=== PATIENT | female | born 1955 | race African-American/Black ===

== ENCOUNTER → 2021-03-20 | Outpatient (CLI) | payer OTHER ==
[2014-09-04 14:00] VITALS: BP 157/78
[~2021-03-20] MED LIST: ALBU1.25 NEB; ALBU2.5V8 IH; AZIT250T6 PO; PRED50TA PO
--- NOTE | 2021-03-20 12:18 | RAD ---
XR CHEST 2V History: Reason: hemoptysis, smoker / Spl. Instructions: / History: Comparison: Two-view chest, September 04, 2014. Findings: The cardiomediastinal silhouette is normal. Pulmonary vasculature is normal. Small nodule in the righ t lung base is likely calcified and likely a calcified granuloma. The lungs are otherwise clear. No p leural effusion or pneumothorax is seen. There is no acute bone abnormality. There is degenerative en dplate spurring of the thoracic spine. IMPRESSION: No acute cardiopulmonary process. Electronically signed by: Kevin Sandoval MD (03/20/2021 12:16 PM) [facility]NANDO
== END ==
LOC: RAD 09:55
PROVIDERS: ATTEND Internal Medicine Gastroenterology
DX: R04.2 Hemoptysis (principal); F17.200 Nicotine dependence, unspecified, uncomplicated
CPT/HCPCS: 71046

== ENCOUNTER → 2021-03-22 | Outpatient (CLI) | payer OTHER ==
[2014-09-04 14:00] VITALS: BP 157/78
--- NOTE | 2021-03-24 14:07 | RAD ---
DATE: 03/24/2021 EXAM: MG 2D BILAT SCREENING HISTORY: Screening COMPARISON: 10/29/2014 This study was interpreted with the benefit of Computerized Aided Detection (CAD). FINDINGS: The breast parenchyma is heterogeneously dense, which could reduce sensitivity of mammography. Globa l asymmetry in the outer right breast is unchanged. Multiple bilateral circumscribed benign-appearing masses are unchanged. There are benign calcifications bilaterally. Small bilateral axillary lymph no víctor are unchanged. No suspicious mass, suspicious calcifications, or architectural distortion. IMPRESSION: No evidence of malignancy. BI-RADS CATEGORY: 2 BENIGN FINDING RECOMMENDED FOLLOW-UP: 12M 12 MONTH FOLLOW-UP PQRS compliance statement: Patient information was entered into a reminder system with a target due d ate for the next mammogram. Mammography is a sensitive method for finding small breast cancers, but it does not detect them all a nd is not a substitute for careful clinical examination. A negative mammogram does not negate a clin ically suspicious finding and should not result in delay in biopsying a clinically suspicious abnorma lity. "Our facility is accredited by the [employer] Mammography Program." Electronically signed by: Amber Vásquez MD (03/24/2021 2:05 PM) [id number]
== END ==
LOC: MAMMO 11:01
PROVIDERS: ATTEND Family Medicine
DX: Z12.31 Encounter for screening mammogram for malignant neoplasm of breast (principal)
CPT/HCPCS: 77067

== ENCOUNTER 2021-05-11 09:36 | Emergency (ER) | payer OTHER ==
[~2021-05-11] VITALS: Ht 165.1 cm; Wt 116.8 kg
[2021-05-11] MEDS ORDERED: ONDANSETRON PF 4 MG/2 ML VIAL. IVP ONE (09:45)
[2021-05-11] MEDS ORDERED: CONTRAST GIVEN. MC PRN (10:00)
[2021-05-11] MEDS ORDERED: IOHEXOL 300 MG/ML 75 ML VIAL. IV ONE (10:00)
--- NOTE | 2021-05-11 10:16 | PHYS DOC ---
Past History Past Medical History: COPD Past Surgical History: No Surgical History, Hysterectomy, Other Additional Past Surgical Histo: BACK SURGERY Alcohol Use: None Drug Use: None General Adult EDM: Chief Complaint: ABDOMINAL PAIN HPI: HPI: Patient is a 65-year-old female coming in via EMS for low abdominal pain for the past 2 days. Patient states that she was diagnosed with diverticulitis and has been on antibiotics for the past couple weeks. Had a colonoscopy and EGD 1 month ago. Patient states she had some nausea no vomiting. Is taking a stool softener and had a soft bowel movement this morning. Denies any vaginal bleeding, pain, dysuria, or hematuria. Patient states that the endoscopy was because she was "coughing up blood". Patient denies any fevers. States the pain is worse with any movement. Review of Systems: Review of Systems: All other systems within normal limits except for as noted in the HPI Current Medications: Current Meds: Current Medications Medications (Trade) Dose Ordered Sig/Kristie Start Time Stop Time Status Last Admin Dose Admin Fentanyl Citrate (Fentanyl 2ml Vial) 75 mcg 1X ONCE 05/11/21 09:45 05/11/21 09:52 DC 05/11/21 10:04 75 MCG Info (Do NOT chart on this entry -- for MONITORING) 1 each PRN DAILY PRN 05/11/21 10:00 05/13/21 09:59 Iohexol (Omnipaque 300 Mg/ml) 75 ml 1X ONCE 05/11/21 10:00 05/11/21 10:01 DC Ondansetron HCl (Zofran) 4 mg 1X ONCE 05/11/21 09:45 05/11/21 09:52 DC 05/11/21 10:03 4 MG Allergies: Allergies: Allergies Coded Allergies Type Severity Reaction Last Updated Verified No Known Drug Allergies 05/11/21 No Physical Exam: PE: Constitutional: Well developed, well nourished, no acute distress, non-toxic appearance. [] HENT: Normocephalic, atraumatic, bilateral external ears normal, nose normal. [] Eyes: PERRLA, conjunctiva normal, no discharge. [] Neck: No rigidity, supple, no stridor. [] Cardiovascular: Regular rate and rhythm, brisk cap refill [] Lungs & Thorax: Non labored symmetric respirations, no tachypnea or respiratory distress [] Abdomen: Soft, nondistended generalized abdominal tenderness. : Normal external genitalia, no erythema or rashes, patient would not tolerate speculum exam, digital exam shows bulging of the anterior vagina Skin: Warm, dry, no erythema, no rash. [] Back: Unremarkable Extremities: No deformities, range of motion grossly intact, no lower extremity edema [] Neurologic: Alert and oriented X 3, no focal deficits noted. [] Psychologic: Affect normal, judgement normal, mood normal. [] Current Patient Data: Vital Signs: Vital Signs Date Time Temp Pulse Resp B/P (MAP) Pulse Ox O2 Delivery O2 Flow Rate FiO2 05/11/21 10:09 87 18 128/76 (93) 98 Room Air 05/11/21 09:41 98.6 EKG: EKG: [] Radiology/Procedures: Radiology/Procedures: [address] [address] IMAGING REPORT Signed PATIENT: AUGIE PEREZ ACCOUNT: [id number] : 1955 LOCATION: ER AGE: 65 SEX: F EXAM STATUS: REG ER ORD. PHYSICIAN: DEVON WOMACK MD REASON: low abd pain - CONTRAST ORDERED PROCEDURE: CT ABD PELV W/ IV CONTRST ONLY Exam Date: 05/11/2021 10:[address] ABDOMEN+PELVIS W Indication: Reason: low abd pain - CONTRAST ORDERED / Spl. Instructions: / History: . TECHNIQUE: CT examination of the abdomen and pelvis was performed following the administration of nonionic intravenous contrast. One or more of the following dose reduction techniques were utilized: *Automated exposure control (AEC) *Adjustment of mA and/or kV according to patient size *Use of iterative reconstruction technique *CT scan done according to ALARA, or ALARA/IMAGE GENTLY FINDINGS: The visualized lung bases are clear. The liver, gallbladder, spleen, pancreas, adrenal glands and kidneys are normal. Urinary bladder is normal in appearance. Diverticulosis coli is seen without bowel obstruction or inflammation. The appendix is normal. No significant atherosclerotic calcifications are seen. No lymphadenopathy or ascites is seen. Degenerative changes are seen in the spine. There is a 7.7 x 4.4 cm fatty lesion in the right gluteus demar muscle consistent with an intramuscular hematoma. IMPRESSION: No evidence of acute intra-abdominal pathology. Electronically signed by: Steven Beckett MD (05/11/2021 10:43 AM) [id number] DICTATED AND SIGNED BY: STEVEN BECKETT MD DATE: 05/11/21 1037 CC: DEVON WOMACK MD; PHUONG GUTIERREZ MD ~MTH0 0 [] Heart Score: C/O Chest Pain: No Risk Factors: Risk Factors: DM, Current or recent (<one month) smoker, HTN, HLP, family history of CAD, obesity. Risk Scores: Score 0 - 3: 2.5% MACE over next 6 weeks - Discharge Home Score 4 - 6: 20.3% MACE over next 6 weeks - Admit for Clinical Observation Score 7 - 10: 72.7% MACE over next 6 weeks - Early Invasive Strategies Course & Med Decision Making: Course & Med Decision Making General exam consistent with cystocele, and patient's symptoms are relieved by laying flat Discussed case with Dr. Joyner regarding your tablet repair and was given several suggestions Brian Disclaimer: Brian Disclaimer: This electronic medical record was generated, in whole or in part, using a voice recognition dictation system. Departure Departure: Impression: Primary Impression: Cystocele Disposition: LEFT AWOL/ELOPED Condition: STABLE Referrals: PHUONG GUTIERREZ MD (PCP) Patient Instructions: Pelvic Pain, Female Additional Instructions: Check with your insurance company her primary care provider if you need a referral for a urogynecologist. [facility] also has your tablet repair available. [facility] [place] group: [phone] [facility] [employer], [address] [address] DEVON WOMACK MD May 11, 2021 10:16
[2021-05-11] MEDS ORDERED: MORPHINE SULFATE 4 MG/ML DISP.SYRIN. ONE (10:35)
[2021-05-11] MEDS ORDERED: OLANZapine 2.5 MG TABLET PO ONE (10:45)
[2021-05-11] MEDS ORDERED: MORPHINE SULFATE 4 MG/ML DISP.SYRIN. IV ONE (10:45)
[2021-05-11] MEDS ORDERED: LORazepam 1 MG TABLET PO ONE (10:45)
--- NOTE | 2021-05-11 10:45 | RAD ---
Exam Date: 05/11/2021 10:[address] ABDOMEN+PELVIS W Indication: Reason: low abd pain - CONTRAST ORDERED / Spl. Instructions: / History: . TECHNIQUE: CT examination of the abdomen and pelvis was performed following the administration of no nionic intravenous contrast. One or more of the following dose reduction techniques were utilized: *Automated exposure control (AEC) *Adjustment of mA and/or kV according to patient size *Use of iterative reconstruction technique *CT scan done according to ALARA, or ALARA/IMAGE GENTLY FINDINGS: The visualized lung bases are clear. The liver, gallbladder, spleen, pancreas, adrenal glands and kidneys are normal. Urinary bladder is normal in appearance. Diverticulosis coli is seen without bowel obstruction or inflammation. The appendix is normal. No significant atherosclerotic calcifications are seen. No lymphadenopathy or ascites is seen. Degenerative changes are seen in the spine. There is a 7.7 x 4.4 cm fatty lesion in the right gluteu s demar muscle consistent with an intramuscular hematoma. IMPRESSION: No evidence of acute intra-abdominal pathology. Electronically signed by: Job Beckett MD (05/11/2021 10:43 AM) [id number]
[2021-05-11 10:49] LABS: BASO # 0.1 x10^3/uL (0.0-0.2); BASO % 1 % (0-3); EOS % 0 % (0-3); HEMATOCRIT 32.8 % (36.0-47.0); HEMOGLOBIN 10.4 g/dL (12.0-15.5); LYMPH # 1.4 x10^3/uL (1.0-4.8); LYMPH % 19 % (24-48); MEAN CORPUSCULAR HEMOGLOBIN 22 pg (25-35); MEAN CORPUSCULAR HGB CONC 32 g/dL (31-37); MEAN CORPUSCULAR VOLUME 69 fL (79-100); MONO % 14 % (0-9); NEUT % 66 % (31-73); PLATELET COUNT 285 x10^3/uL (140-400); RED BLOOD COUNT 4.77 x10^6/uL (3.50-5.40); RED CELL DISTRIBUTION WIDTH 15.8 % (11.5-14.5); WHITE BLOOD COUNT 7.6 x10^3/uL (4.0-11.0)
[2021-05-11 10:57] LABS: CALCIUM 8.2 mg/dL (8.5-10.1); CREATININE 0.9 mg/dL (0.6-1.0); GFR 76.5; POTASSIUM 3.3 mmol/L (3.5-5.1)
[2021-05-11 11:04] LABS: ALBUMIN 3.4 g/dL (3.4-5.0); ALBUMIN/GLOBULIN RATIO 0.9 (1.0-1.7); TOTAL BILIRUBIN 1.4 mg/dL (0.2-1.0)
[2021-05-11 11:28] LABS: BILIRUBIN,URINE NEG (NEG); CLARITY,URINE CLEAR; COLOR,URINE YELLOW; GLUCOSE,URINE NEG (NEG); NITRITE,URINE NEG (NEG); UROBILINOGEN,URINE 0.2 mg/dL (0.2 mg/dL)
[2021-05-11 11:33] LABS: BACTERIA,URINE 0 /HPF (0-FEW); SQUAMOUS EPITHELIAL CELL,UR MOD /LPF; WBC,URINE 0 /HPF (0-4)
[2021-05-11] MEDS ORDERED: KETOROLAC 30 MG/ML VIAL. ONE (12:14)
[2021-05-11] MEDS ORDERED: KETOROLAC 30 MG/ML VIAL. IVP ONE (12:15)
[2021-05-11 12:17] LABS: HYPOCHROMIA PRESENT
[2021-05-11 12:18] LABS: TARGET CELLS PRESENT
[2021-05-11 12:19] LABS: PLT ESTIMATE ADEQUATE (ADEQUATE)
[2021-05-11 13:58] VITALS: BP 122/64
== END 2021-05-11 13:58 | disposition left against medical advice (07) ==
LOC: ER 09:36
DX: N81.10 Cystocele, unspecified (principal); J44.9 Chronic obstructive pulmonary disease, unspecified
CPT/HCPCS: 36415; 74177; 80053; 81001; 83605; 83690; 85025; 96374; 96375; 99285; J1885; J2270; J2405; J3010; Q9967

== ENCOUNTER 2021-05-19 12:32 | Emergency (ER) | payer OTHER ==
[~2021-05-19] VITALS: Ht 165.1 cm; Wt 116.8 kg
[2021-05-19 12:39] VITALS: BP 147/92
[2021-05-19] MEDS ORDERED: oxyCODONE/APAP 7.5/325 1 TAB TABLET PO ONE (13:30)
[2021-05-19] MEDS ORDERED: OXYC1TAB22 PO (14:13)
--- NOTE | 2021-05-19 14:16 | PHYS DOC ---
Past History Past Medical History: COPD (GAGE HERNANDEZ APRN) Past Surgical History: Hysterectomy, Other Additional Past Surgical Histo: BACK SURGERY (GAGE HERNANDEZ APRN) Alcohol Use: None Drug Use: None (GAGE HERNANDEZ APRN) General Adult EDM: Chief Complaint: BACK PAIN - NO INJURY HPI: HPI: Patient is a 65-year-old female presents with lower abdominal pain that radiates into her lower back. Patient has been seen once at [facility] and also admitted to [facility] for intractable abdominal pain. Patient was unsure of what CT scan results showed. Patient states she was told to follow-up with uro-/CNA PER DIEM. Patient has not called to make an appointment. Patient states that pain is better than it was but she is out of pain medication and is concerned pain will increase. Patient is also reporting issues with urinating. Patient was placed on oxybutynin a few days ago when she was discharged from [facility]. Patient symptoms are unchanged from 2 previous visits in the last week. Patient has history of COPD, hypertension. Patient is afebrile. (GAGE HERNANDEZ APRN) Review of Systems: Review of Systems: Constitutional: Denies fever or chills Eyes: Denies change in visual acuity HENT: Denies nasal congestion or sore throat Respiratory: Denies cough or shortness of breath Cardiovascular: Denies chest pain or edema GI: Reports lower abdominal pain, denies nausea, vomiting, bloody stools or diarrhea : Denies dysuria. Reports trouble with urinating Musculoskeletal: Reports left-sided back pain, denies joint pain Integument: Denies rash Neurologic: Denies headache, focal weakness or sensory changes Endocrine: Denies polyuria or polydipsia Lymphatic: Denies swollen glands Psychiatric: Denies depression or anxiety (GAGE HERNANDEZ APRN) Current Medications: Current Meds: Current Medications Medications (Trade) Dose Ordered Sig/Kristie Start Time Stop Time Status Last Admin Dose Admin Oxycodone/ Acetaminophen (Percocet 7.5/ 325) 1 tab 1X ONCE 05/19/21 13:30 05/19/21 13:42 DC 05/19/21 13:39 1 TAB (GAGE HERNANDEZ APRN) Allergies: Allergies: Allergies Coded Allergies Type Severity Reaction Last Updated Verified No Known Drug Allergies 05/11/21 No (GAGE HERNANDEZ APRN) Physical Exam: PE: Constitutional: Well developed, well nourished, no acute distress, non-toxic appearance. [] HENT: Normocephalic, atraumatic, bilateral external ears normal, oropharynx moist, no oral exudates, nose normal. [] Eyes: PERRLA, EOMI, conjunctiva normal, no discharge. [] Neck: Normal range of motion, no tenderness, supple, no stridor. [] Cardiovascular:Heart rate regular rhythm, no murmur [] Lungs & Thorax: Bilateral breath sounds clear to auscultation [] Abdomen: Bowel sounds normal, soft, no tenderness, no masses, no pulsatile masses. [] Skin: Warm, dry, no erythema, no rash. [] Back: No tenderness, no CVA tenderness. [] Extremities: No tenderness, no cyanosis, no clubbing, ROM intact, no edema. [] Neurologic: Alert and oriented X 3, normal motor function, normal sensory function, no focal deficits noted. [] Psychologic: Affect normal, judgement normal, mood normal. [] (GAGE HERNANDEZ APRN) Current Patient Data: Vital Signs: Vital Signs Date Time Temp Pulse Resp B/P (MAP) Pulse Ox O2 Delivery O2 Flow Rate FiO2 05/19/21 13:39 18 05/19/21 12:39 97.9 67 147/92 96 Room Air (GAGE HERNANDEZ APRN) EKG: EKG: [] (GAGE HERNANDEZ APRN) Radiology/Procedures: Radiology/Procedures: [] (GAGE HERNANDEZ APRN) Heart Score: C/O Chest Pain: No Risk Factors: Risk Factors: DM, Current or recent (<one month) smoker, HTN, HLP, family history of CAD, obesity. Risk Scores: Score 0 - 3: 2.5% MACE over next 6 weeks - Discharge Home Score 4 - 6: 20.3% MACE over next 6 weeks - Admit for Clinical Observation Score 7 - 10: 72.7% MACE over next 6 weeks - Early Invasive Strategies (GAGE HERNANDEZ APRN) Course & Med Decision Making: Course & Med Decision Making Pertinent Labs and Imaging studies reviewed. (See chart for details) [] 65-year-old female who presents with lower abdominal pain that radiates into her left side of her lower back. Patient has been seen twice in the last week for same symptoms. Patient denies an increase in pain or new complaints. Patient states that she was prescribed Percocet but is now out of her medications at home. Patient states that she has been taking a pill every 3 hours instead of every 6. Patient is afebrile. Denies nausea/vomiting/diarrhea. Patient was seen by Dr. Joyner at [facility] which referred her to uro-/CNA PER DIEM. Patient has not contacted their office for follow-up. Patient states that she was confused on who she was supposed to call and make a follow-up appointment with. Patient's last CT scan of abdomen pelvis was negative for any acute abnormalities. Scan did show a lipoma in her gluteus demar. Discussed results with patient. Patient given a Percocet for pain while in the emergency room. Patient was sent home with a few Percocet until she is able to follow-up with her primary care physician. Discussed with patient that she needs to make her follow-up appointment to have further evaluation done by uro-/CNA PER DIEM. (GAGE HERNANDEZ APRN) Brian Disclaimer: Brian Disclaimer: This electronic medical record was generated, in whole or in part, using a voice recognition dictation system. (GAGE HERNANDEZ APRN) Attending Co-Sign The patient was seen and interviewed as well as examined at the bedside. The chart was reviewed. The case was discussed. Agree with the plan of care. (ALONZO SHANKS DO) Departure Departure: Impression: Primary Impression: Intractable abdominal pain Additional Impression: Lower back pain Qualified Codes: M54.5 - Low back pain Disposition: HOME / SELF CARE / HOMELESS Condition: STABLE Referrals: PHUONG GUTIERREZ MD (PCP) Patient Instructions: Abdominal Pain Additional Instructions: You were seen in the emergency room for abdominal pain. You were given Percocet to treat your pain. I am sending you home with a few Percocet until you can follow-up with your PCP. Your PCP will need to prescribe you pain medication since he will be the one managing your care. After reading the reports from your previous visit, it was suggested that you follow-up with your/CNA PER DIEM. I am attaching a phone number also for [facility] so that you have follow-up contact information. Make sure that you call today and make a follow-up appointment please. Return to the emergency room if you have worsening symptoms or concerns, otherwise follow-up with your PCP and [facility]. UROGYNECOLOGY [phone] EMERGENCY DEPARTMENT GENERAL DISCHARGE INSTRUCTIONS Thank you for coming to [facility] (ED) today and trusting us with you care. We trust that you had a positivie experience in our Emergency Department. If you wish to speak to the department management, you may call the director at [phone]. YOUR FOLLOW UP INSTRUCTIONS ARE FOLLOWS: 1. Do you have a private Doctor? If you do not have a private doctor, please ask for a resource list of physicians or clinics that may be able to assist you with follow up care. 2. The Emergency Physician has interpreted your x-rays. The X-Ray specialist will also review them. If there is a change in the findings, you will be notified in 48 hours when at all possible. 3. A lab test or culture has been done, your results will be reviewed and you will be notified if you need a change in treatment. ADDITIONAL INSTRUCTIONS AND INFORMATION: 1. Your care today has been supervised by a physician who is specially trained in emergency care. Many problems require more than one evaluation for a complete diagnosis and treatment. We recommend that you schedule your follow up appointment as recommended to ensure complete treatment of you illness or injury. If you are unable to obtain follow up care and continue to have a problem, or if your condition worsens, we recommend that you return to the ED. 2. We are not able to safely determine your condition over the phone nor are we able to give sound medical advice over the phone. For these safety reasons, if you call for medical advice we will ask you to come to the ED for further evaluation. 3. If you have any questions regarding these discharge instructions please call the ED at [phone]. SAFETY INFORMATION: In the interest of safety, wellness, and injury prevention; we encourage you to wear your sealbelt, if you smoke; quite smoking, and we encourage family to use a protective helmet for bicycling and other sporting events that present an increased risk for head injury. IF YOUR SYMPTOMS WORSEN OR NEW SYMPTOMS DEVELOP, OR YOU HAVE CONCERNS ABOUT YOUR CONDITION; OR IF YOUR CONDITION WORSENS WHILE YOU ARE WAITING FOR YOUR FOLLOW UP APPOINTMENT; EITHER CONTACT YOUR PRIMARY CARE DOCTOR, THE PHYSICIAN WHOSE NAME AND NUMBER YOU WERE GIVEN, OR RETURN TO THE ED IMMEDIATELY. Scripts Oxycodone Hcl/Acetaminophen (PERCOCET 10-325 MG TABLET ) 1 Each Tablet 1 TAB PO PRN Q6HRS PRN for PAIN MDD 4 Tablet(s) for 3 Days, #12 TAB 0 Refills Prov: GAGE HERNANDEZ APRN 05/19/21 GAGE HERNANDEZ APRN May 19, 2021 14:16 ALONZO SHANKS DO May 22, 2021 10:14
== END 2021-05-19 14:26 | disposition home or self-care (01) ==
LOC: ER 12:32
DX: R10.30 Lower abdominal pain, unspecified (principal); M54.5 Low back pain; R39.198 Other difficulties with micturition; J44.9 Chronic obstructive pulmonary disease, unspecified
CPT/HCPCS: 99283

== ENCOUNTER → 2021-06-01 | Outpatient (CLI) | payer OTHER ==
[2021-05-19 12:39] VITALS: BP 147/92
[~2021-06-01] MED LIST changes: +IOHEXOL 300 MG/ML 75 ML VIAL. IV ONE; +OXYC1TAB22 PO
--- NOTE | 2021-06-01 11:21 | RAD ---
CT of the chest with contrast 06/01/2021 INDICATION: Hemoptysis. Nicotine dependence. COMPARISON STUDY: Chest radiograph March 20, 2021. TECHNIQUE: Multidetector CT imaging of the chest was performed both before and after the administrati on of contrast. FINDINGS: Heterogenous appearance of the bilateral thyroid noted, with hypodense nodular foci noted. Thyroid ultrasound recommended. Heart size is normal. No pericardial effusion is identified. Scattere d small mediastinal lymph nodes noted without evidence of pathologically enlarged mediastinal adenopa thy. Visualized central airways are grossly patent. Thorax, pleural effusion, or acute appearing infi ltrate identified. There is a 4 mm noncalcified nodule in the left upper lobe (axial image 34). Mild apical predominant emphysematous changes are noted. Visualization of the upper abdomen is unremarkabl e. No acute osseous changes are seen. IMPRESSION: 1. 4 mm noncalcified nodule, left upper lobe. Follow-up CT chest recommended in one year. 2. Heterogenous appearance of the thyroid gland with nodular opacities. Thyroid ultrasound recommende d. CT DOSING PQRS STATEMENT: One or more of the following individualized dose reduction techniques were utilized for this examinat ion: 1. Automated exposure control 2. Adjustment of the mA and/or kV according to patient size 3. Use of iterative reconstruction technique Electronically signed by: Lui Banks MD (06/01/2021 11:18 AM) [id number]
== END ==
LOC: CT 10:15
PROVIDERS: ATTEND Family Medicine
DX: R91.1 Solitary pulmonary nodule (principal); J43.9 Emphysema, unspecified; E07.9 Disorder of thyroid, unspecified; R04.2 Hemoptysis; F17.210 Nicotine dependence, cigarettes, uncomplicated
CPT/HCPCS: 71270; Q9967

== ENCOUNTER 2021-06-26 10:14 | Emergency (ER) | payer OTHER ==
[~2021-06-26] VITALS: Ht 165.1 cm; Wt 116.8 kg
[~2021-06-26 10:14] MED LIST changes: -IOHEXOL 300 MG/ML 75 ML VIAL. IV ONE
[2021-06-26 10:23] VITALS: BP 154/92
--- NOTE | 2021-06-26 10:44 | PHYS DOC ---
Past History Past Medical History: COPD Past Surgical History: Hysterectomy, Other Additional Past Surgical Histo: BACK SURGERY Alcohol Use: None Drug Use: None General Adult EDM: Chief Complaint: BACK PAIN OR INJURY HPI: HPI: 65-year-old female presents with a right buttocks wound. The patient recently had surgery and had some kind of a mass taken out of her buttocks. She lives alone and is unable to change out the dressing. She was directed by the surgeon to change it today. She is also not supposed to get it wet so she was concerned about getting it changed out and then covered so that she can bathe herself. She denies fever or chills. Review of Systems: Review of Systems: Constitutional: Denies fever or chills Eyes: Denies change in visual acuity HENT: Denies nasal congestion or sore throat Respiratory: Denies cough or shortness of breath Cardiovascular: Denies chest pain or edema GI: Denies abdominal pain, nausea, vomiting, bloody stools or diarrhea : Denies dysuria Musculoskeletal: Denies back pain or joint pain Integument: Surgical wound in the right buttocks Neurologic: Denies headache, focal weakness or sensory changes Endocrine: Denies polyuria or polydipsia Lymphatic: Denies swollen glands Psychiatric: Denies depression or anxiety Allergies: Allergies: Allergies Coded Allergies Type Severity Reaction Last Updated Verified No Known Drug Allergies 05/11/21 No Physical Exam: PE: Constitutional: Well developed, well nourished, obese, no acute distress, non- toxic appearance. [] HENT: Normocephalic, atraumatic, bilateral external ears normal, oropharynx moist, no oral exudates, nose normal. [] Eyes: PERRLA, EOMI, conjunctiva normal, no discharge. [] Neck: Normal range of motion, no tenderness, supple, no stridor. [] Cardiovascular: Heart rate regular rhythm, no murmur [] Lungs & Thorax: Bilateral breath sounds clear to auscultation [] Abdomen: Bowel sounds normal, soft, no tenderness, no masses, no pulsatile masses. [] Skin: 3 cm x 6 cm gauze dressing with Medipore tape covering on the right buttocks. Moderate serosanguineous fluid. No surrounding signs of cellulitis. [] Back: No tenderness, no CVA tenderness. [] Extremities: No tenderness, no cyanosis, no clubbing, ROM intact, no edema. [] Neurologic: Alert and oriented X 3, normal motor function, normal sensory function, no focal deficits noted. [] Psychologic: Affect normal, judgement normal, mood normal. [] EKG: EKG: [] Radiology/Procedures: Radiology/Procedures: [] Heart Score: C/O Chest Pain: N/A Risk Factors: Risk Factors: DM, Current or recent (<one month) smoker, HTN, HLP, family history of CAD, obesity. Risk Scores: Score 0 - 3: 2.5% MACE over next 6 weeks - Discharge Home Score 4 - 6: 20.3% MACE over next 6 weeks - Admit for Clinical Observation Score 7 - 10: 72.7% MACE over next 6 weeks - Early Invasive Strategies Course & Med Decision Making: Course & Med Decision Making Pertinent Labs and Imaging studies reviewed. (See chart for details) The patient dressing was removed. There was one small soft scab over the wound. After it was removed the skin looks excellent. The surgical site is very clean and well approximated. No signs of infection. An additional clean dry dressing was applied with waterproof Tegaderm. The patient was grateful for care. She is stable for discharge at this time. [] Dragon Disclaimer: Dragon Disclaimer: This electronic medical record was generated, in whole or in part, using a voice recognition dictation system. Departure Departure: Impression: Primary Impression: Visit for wound check Additional Impression: Encounter for surgical wound dressing change Disposition: HOME / SELF CARE / HOMELESS Condition: IMPROVED Referrals: PHUONG GUTIERREZ MD (PCP) Patient Instructions: Wound Care, [id number] ALONZO SHANKS DO Jun 26, 2021 10:44
== END 2021-06-26 11:52 | disposition home or self-care (01) ==
LOC: ER 10:14
DX: Z48.01 Encounter for change or removal of surgical wound dressing (principal); J44.9 Chronic obstructive pulmonary disease, unspecified
CPT/HCPCS: 99282

== ENCOUNTER 2021-10-08 15:59 | Emergency (ER) | payer OTHER ==
[~2021-10-08] VITALS: Ht 165.1 cm; Wt 116.8 kg
[2021-10-08] MEDS ORDERED: guaiFENesin/CODEINE 100mg/10mg 5 ML LIQUID PO STA (17:19)
--- NOTE | 2021-10-08 17:33 | EKG ---
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
[2021-10-08 18:15] LABS: INFLUENZA A PATIENT NEGATIVE (NEGATIVE); INFLUENZA B PATIENT NEGATIVE (NEGATIVE)
[2021-10-08 18:22] VITALS: BP 164/101
--- NOTE | 2021-10-08 18:27 | RAD ---
XR CHEST 1V CLINICAL INDICATIONS: Reason: COUGH, WHEEZING, SHORTNESS OF BREATH, HX ASTHMA/BRONCHITIS / Spl. Instr uctions: / History: COMPARISON: March 20, 2021. Findings: Small granuloma right lung base is again evident. No acute lung infiltrate or pleural effus ion or pulmonary edema or lung mass or pneumothorax is seen. The heart size, pulmonary vasculature, mediastinum and both marito are unremarkable. IMPRESSION: No acute radiographic abnormality is seen. Electronically signed by: Puneet Benjamin MD (10/08/2021 6:24 PM) [id number]
--- NOTE | 2021-10-08 18:34 | RAD ---
CT STUDY OF THE LUMBAR SPINE WITHOUT CONTRAST Clinical indications: Fall. Severe back pain. History of surgeries in the back. TECHNIQUE: Noncontrast helical CT scanning of the lumbar spine was performed. Multiplanar 2-D reconst ructions were generated. PQRS compliance Statement One or more of the following individualized dose reduction techniques were utilized for this study: 1. Automated exposure control 2. Adjustment of the mA and/or kV according to patient size 3. Use of iterative reconstruction technique FINDINGS: 4 lumbar type vertebrae are evident. No compression fracture or discitis or lytic process i s evident. There is a grade 1 anterolisthesis of L3-L4 secondary to bilateral facet arthropathy. No s pondylolysis is evident. The transverse processes are intact. There is a moderate spinal canal stenos is at L4-5 due to diffuse disc protrusion and endplate spurring and facet spurring. There is also mod erate narrowing of the neural foramina bilaterally at this level. Moderate to severe narrowing of the neural foramina is seen bilaterally at L4-S1. There is a diffuse disc protrusion at this level. Ther e is mild spinal canal stenosis at this level but this has been decompressed with laminectomy. IMPRESSION: No acute compression fracture. 4 lumbar type vertebrae. There is a grade 1 anterolisthesis of L3-4 secondary to bilateral facet arth ropathy. There is a diffuse disc protrusion at this level. There is a moderate spinal canal stenosis at this level. Moderate narrowing of the neural foramina bilaterally at this level. There is a mild spinal canal stenosis at L5-S1 which has been partially decompressed by laminectomy. There is diffuse disc protrusion at this level. There is moderate to severe narrowing of the neural f oramina bilaterally. Electronically signed by: Puneet Benjamin MD (10/08/2021 6:32 PM) [id number]
--- NOTE | 2021-10-08 19:28 | PHYS DOC ---
Past History Past Medical History: COPD (RK GOOD APRN) Past Surgical History: Hysterectomy, Other Additional Past Surgical Histo: BACK SURGERY (RK GOOD APRN) Alcohol Use: None Drug Use: None (RK GOOD APRN) Adult General Chief Complaint Chief Complaint: COUGH HPI HPI Patient is a 66-year-old female patient presented to the ED today complaining of a productive cough, symptoms of been going on for 1 week. Also complaining of body aches for 3 days. Patient also states she fell down 5 days ago and now has 10 out of 10 low back pain. Describes the pain as sharp and constant. Denies any pain radiating to bilateral lower extremities. Denies any loss of bowel/bladder function. Denies any Specific exacerbating or relieving her symptoms. She is thrashing around in the bed talking out loud, coughing out loud. Very verbally aggressive (RK GOOD APRN) Review of Systems Review of Systems Constitutional: Denies fever or chills [] Eyes: Denies change in visual acuity, redness, or eye pain [] HENT: Denies nasal congestion or sore throat [] Respiratory: Reports cough Cardiovascular: No additional information not addressed in HPI [] GI: Denies abdominal pain, nausea, vomiting, bloody stools or diarrhea [] : Denies dysuria or hematuria [] Musculoskeletal: Reports low back Integument: Denies rash or skin lesions [] Neurologic: Denies headache, focal weakness or sensory changes [] All other systems were reviewed and found to be within normal limits, except as documented in this note. (RK GOOD APRN) Current Medications Current Medications Current Medications Medications (Trade) Dose Ordered Sig/Kristie Start Time Stop Time Status Last Admin Dose Admin Guaifenesin/ Codeine Phosphate (Robitussin Ac) 10 ml 1X STAT 10/08/21 17:19 10/08/21 17:31 DC 10/08/21 17:41 10 ML (RK GOOD APRN) Allergies Allergies Allergies Coded Allergies Type Severity Reaction Last Updated Verified No Known Drug Allergies 05/11/21 No (RK GOOD APRN) Physical Exam Physical Exam Constitutional: Well developed, well nourished, no acute distress, non-toxic a ppearance. [] HENT: Normocephalic, atraumatic, bilateral external ears normal, oropharynx moist, no oral exudates, nose normal. [] Eyes: PERRLA, EOMI, conjunctiva normal, no discharge. [] Neck: Normal range of motion, no tenderness, supple, no stridor. [] Cardiovascular:Heart rate regular rhythm, no murmur [] Lungs & Thorax: Bilateral breath sounds clear to auscultation [] Abdomen: Bowel sounds normal, soft, no tenderness, no masses, no pulsatile masses. [] Skin: Warm, dry, no erythema, no rash. [] Back: Old healed surgical incision noted on the lower lumbar spine, diffuse paraspinal muscle tenderness to bilateral lumbar spine, no midline lumbar spine tenderness, no CVA tenderness. [] Extremities: No tenderness, no cyanosis, no clubbing, ROM intact, no edema. [] Neurologic: Alert and oriented X 3, normal motor function, normal sensory function, no focal deficits noted. [] Psychologic: Affect normal, judgement normal, mood normal. [] (RK GOOD MANAGER PRIVACY) Current Patient Data Vital Signs Vital Signs Date Time Temp Pulse Resp B/P (MAP) Pulse Ox O2 Delivery O2 Flow Rate FiO2 10/08/21 18:22 97.9 89 16 164/101 (122) 100 Lab Results Laboratory Tests Test 10/08/21 17:43 Influenza Type A (Rapid) Negative (NEGATIVE) Influenza Type B (Rapid) Negative (NEGATIVE) (RK GOOD APRN) EKG EKG [] (RK GOOD MANAGER PRIVACY) Radiology/Procedures Radiology/Procedures []PROCEDURE: CT LUMBAR SPINE WO CONTRAST CT STUDY OF THE LUMBAR SPINE WITHOUT CONTRAST Clinical indications: Fall. Severe back pain. History of surgeries in the back. TECHNIQUE: Noncontrast helical CT scanning of the lumbar spine was performed. Multiplanar 2-D reconstructions were generated. PQRS compliance Statement One or more of the following individualized dose reduction techniques were utilized for this study: 1. Automated exposure control 2. Adjustment of the mA and/or kV according to patient size 3. Use of iterative reconstruction technique FINDINGS: 4 lumbar type vertebrae are evident. No compression fracture or discitis or lytic process is evident. There is a grade 1 anterolisthesis of L3- L4 secondary to bilateral facet arthropathy. No spondylolysis is evident. The transverse processes are intact. There is a moderate spinal canal stenosis at L4-5 due to diffuse disc protrusion and endplate spurring and facet spurring. There is also moderate narrowing of the neural foramina bilaterally at this level. Moderate to severe narrowing of the neural foramina is seen bilaterally at L4-S1. There is a diffuse disc protrusion at this level. There is mild spinal canal stenosis at this level but this has been decompressed with laminectomy. IMPRESSION: No acute compression fracture. 4 lumbar type vertebrae. There is a grade 1 anterolisthesis of L3-4 secondary to bilateral facet arthropathy. There is a diffuse disc protrusion at this level. There is a moderate spinal canal stenosis at this level. Moderate narrowing of the neural foramina bilaterally at this level. There is a mild spinal canal stenosis at L5-S1 which has been partially decompressed by laminectomy. There is diffuse disc protrusion at this level. There is moderate to severe narrowing of the neural foramina bilaterally. Electronically signed by: Yusra Benjamin MD (10/08/2021 6:32 PM) [id number] DICTATED AND SIGNED BY: YUSRA BENJAMIN MD DATE: 10/08/211824 CC: PHUONG GUTIERREZ MD; RK GOOD APRN ~MTH0 0 PROCEDURE: CHEST AP ONLY XR CHEST 1V CLINICAL INDICATIONS: Reason: COUGH, WHEEZING, SHORTNESS OF BREATH, HX ASTHMA/BRONCHITIS / Spl. Instructions: / History: COMPARISON: March 20, 2021. Findings: Small granuloma right lung base is again evident. No acute lung infiltrate or pleural effusion or pulmonary edema or lung mass or pneumothorax is seen. The heart size, pulmonary vasculature, mediastinum and both marito are unremarkable. IMPRESSION: No acute radiographic abnormality is seen. Electronically signed by: Yusra Benjamin MD (10/08/2021 6:24 PM) [id number] DICTATED AND SIGNED BY: YUSRA BENJAMIN MD DATE: 10/08/211823 CC: PHUONG GUTIERREZ MD; RK GOOD APRN ~MTH0 0 (RK GOOD APRN) Heart Score C/O Chest Pain: N/A Risk Factors: Risk Factors: DM, Current or recent (<one month) smoker, HTN, HLP, family history of CAD, obesity. Risk Scores: Risk Factors: DM, Current or recent (<one month) smoker, HTN, HLP, family history of CAD, obesity. (RK GOOD APRN) Course & Med Decision Making Course & Med Decision Making Pertinent Labs and Imaging studies reviewed. (See chart for details) This is a 66-year-old male patient presented to the ED today complaining of low back pain, has a history of low back pain and fell down [address] of the lumbar spine is negative for any acute findings. Patient is also complaining of body aches and a cough, chest x-ray interpreted by radiologist as negative for any acute findings, negative influenza a and B Discharged to home. Follow-up with PCP (RK GOOD APRN) Course & Med Decision Making Did not see or evaluate patient.. Did not discuss patient with WOMEN'S BASKETBALL COACH. Agree with WOMEN'S BASKETBALL COACH's work-up and disposition per note (SHOAIB TORO MD) Dragon Disclaimer Dragon Disclaimer This electronic medical record was generated, in whole or in part, using a voice recognition dictation system. (RK GOOD APRN) Departure Departure: Impression: Primary Impression: Back pain Additional Impressions: Fall Person under investigation for COVID-19 Body aches Cough Disposition: HOME / SELF CARE / HOMELESS Condition: STABLE Referrals: PHUONG GUTIERREZ MD (PCP) follow up as soon as you can Patient Instructions: Back Pain, Adult, Cough, Adult Additional Instructions: You were evaluated in the emergency room, your chest x-ray was negative for any acute findings, your CT of the lumbar spine is negative for any acute findings. Your influenza test is negative. You have a pending COVID PCR test, we will call you when results are available Scripts Cyclobenzaprine Hcl (CYCLOBENZAPRINE HCL) 10 Mg Tablet 1 TAB PO TID, #90 TAB Prov: RK GOOD APRN 10/08/21 Guaifenesin/Codeine Phosphate (Codeine-Guaifen 10-100 mg/5 ml) 120 Ml Liquid 5 ML PO PRN Q6HRS PRN for cough and congestion MDD 20 Milliliter(s) for 6 Days, #120 ML 0 Refills Prov: RK GOOD APRN 10/08/21 Problem Qualifiers Primary Impression: Back pain Back pain location: low back pain Chronicity: acute Back pain laterality: bilateral Sciatica presence: without sciatica Qualified Codes: M54.50 - Low back pain, unspecified Additional Impressions: Fall Encounter type: initial encounter Qualified Codes: W19.XXXA - Unspecified fall, initial encounter RK GOOD APRN Oct 08, 2021 19:28 SHOAIB TORO MD Oct 08, 2021 21:03
[2021-10-08] MEDS ORDERED: GUAI120L35 PO (19:35)
[2021-10-08] MEDS ORDERED: CYCL10TA19 PO (19:35)
== END 2021-10-08 19:39 | disposition left against medical advice (07) ==
LOC: ER 15:59
DX: U07.1 COVID-19 (principal); J44.9 Chronic obstructive pulmonary disease, unspecified; M54.59 Other low back pain; W18.39XA Other fall on same level, initial encounter; Y93.89 Activity, other specified; Y92.89 Other specified places as the place of occurrence of the external cause; Y99.8 Other external cause status
CPT/HCPCS: 71045; 72131; 87804; 93005; 99285; U0003